=== PATIENT | female | born 1970 | race Caucasian/White ===

== ENCOUNTER 2016-07-01 14:02 | Outpatient (CLI) | payer OTHER | END 2016-07-01 14:03 | disposition home or self-care (01) | DX: G47.8 Other sleep disorders (principal); G47.10 Hypersomnia, unspecified; R06.83 Snoring; R51 Headache ==

== ENCOUNTER 2016-07-29 19:24 | Outpatient (CLI) | payer OTHER | END 2016-07-29 19:25 | disposition home or self-care (01) | DX: G47.61 Periodic limb movement disorder (principal); R06.83 Snoring ==

== ENCOUNTER 2016-08-13 15:11 | Outpatient (CLI) | payer OTHER | END 2016-08-13 15:12 | disposition home or self-care (01) | DX: G47.33 Obstructive sleep apnea (adult) (pediatric) (principal) ==

== ENCOUNTER 2016-09-29 19:15 | Outpatient (CLI) | payer OTHER | END 2016-09-29 19:16 | disposition home or self-care (01) | LOC: SC 19:15 | PROVIDERS: ATTEND Internal Medicine Pulmonary Disease | DX: G47.10 Hypersomnia, unspecified (principal); R06.83 Snoring; R51 Headache | CPT/HCPCS: 95810 ==

== ENCOUNTER 2016-10-14 15:46 | Outpatient (CLI) | payer OTHER | END 2016-10-14 15:47 | disposition home or self-care (01) | LOC: SC 15:46 | PROVIDERS: ATTEND Nurse Practitioner Family | DX: R06.83 Snoring (principal); G47.10 Hypersomnia, unspecified | CPT/HCPCS: 99212; 99213 ==

== ENCOUNTER 2016-12-17 13:21 | Outpatient (CLI) | payer OTHER ==
--- NOTE | 2016-12-17 17:04 | MRI Report ---
EXAM: RIGHT KNEE MRI WITHOUT CONTRAST EXAM DATE: 12/17/2016 02:28 PM. CLINICAL HISTORY: Right knee pain for 4 months, increasing in the last month. COMPARISON: None. TECHNIQUE: Multiplanar, multisequence T1-weighted and fluid-sensitive sequences of the knee without c ontrast. Other: None. FINDINGS: Bones: Moderate tibiofemoral and mild patellofemoral osteophytes are present. No fractures or marrow edema. Red marrow reconversion is demonstrated. Articular Cartilage: The patellar articular cartilage has areas of partial-thickness fissuring. The t rochlear cartilage has moderate thinning and surface irregularity centrally and medially inferiorly. The lateral compartment articular cartilage has focal thinning inferiorly at the lateral femoral cond yle. There is moderate thinning of the medial compartment articular cartilage. Medial Meniscus: The posterior root of the medial meniscus has a longitudinal tear (series 601, image 11). Lateral Meniscus: The lateral meniscus is intact. Cruciate Ligaments: The anterior and posterior cruciate ligaments are intact. Collateral Ligaments: The medial collateral and lateral collateral ligamentous structures are intact. Tendons: The quadriceps, patellar, semimembranosus, and popliteus tendons are unremarkable. Musculature: No edema or fatty atrophy. Other: A mild effusion is present. No popliteal cyst. No loose bodies. The medial and lateral retina cula are intact. Prepatellar subcutaneous edema is seen. IMPRESSION: 1. Mild osteoarthritis. 2. Posterior root tear of the medial meniscus. 3. Mild knee effusion. [facility] MUSCULOSKELETAL RADIOLOGY SECTION Referring Provider Line: [phone] SITE ID: [id number]
== END 2016-12-17 13:22 | disposition home or self-care (01) ==
LOC: DI 13:21
DX: M17.11 Unilateral primary osteoarthritis, right knee (principal); S83.241A Other tear of medial meniscus, current injury, right knee, initial encounter; M25.461 Effusion, right knee

== ENCOUNTER 2018-09-28 19:08 | Emergency (ER) | payer OTHER ==
--- NOTE | 2018-09-28 19:45 | ED Physician Documentation ---
PD HPI BACK PAIN - Stated complaint Stated Complaint: BACK PX - Chief complaint Chief Complaint: Back Pain - History obtained from History obtained from: Patient - History of Present Illness Timing - onset: Yesterday Timing - duration: Days (1) Timing - details: Gradual onset Location: Lower Quality: Other (Tightening and pulling) Associated symptoms: No: Incontinent of urine, Unable to urinate Improves with: Other (No relief with ice, heat or naproxen) Contributing factors: Lifting, Twisting - Additional information Additional information: This a 48-year-old woman who was shopping at [employer] 2 days ago she lifted a case of water and a case of Coke loading them in her car and then unloading them at home. Last night she started to get low back tightening. She took 2 Aleve Yesterday morning and went to work she was able to make it through the shift. Today she took 2 more Aleve and had to leave work after just a couple of hours because she can sit there anymore back just kept tightening up. She iced it and heated it does not seem to be helping. Her left leg felt numb through the entire leg today but she was not weak and she did not fall. No dysuria or urinary incontinence and states she is perimenopausal therefore denies . Her last menstrual period was September 11. She had one other episode with low back pain when she was in her mid 30s. She has a sitdown job doing factory production work. Review of Systems Constitutional: denies: Fever : denies: Dysuria, Incontinent, Hematuria Musculoskeletal: reports: Back pain PD PAST MEDICAL HISTORY - Present Medications Home Medications: Ambulatory Orders Medication Instructions Recorded Confirmed Cetirizine [ZyrTEC] 10 mg PO DAILY 09/28/18 09/28/18 Cyclobenzaprine [Flexeril] 10 mg PO TID PRN #20 tablet 09/28/18 Fluticasone [Flonase] 1 - 2 spray DANIELA DAILY 09/28/18 09/28/18 - Allergies Allergies/Adverse Reactions: Allergies Allergy/AdvReac Type Severity Reaction Status Date / Time No Known Drug Allergies Allergy Verified 09/28/18 19:15 PD ED PE NORMAL - Vitals Vital signs reviewed: Yes - General General: Alert and oriented X 3, No acute distress, Well developed/nourished, Other (Obese 48-year-old woman who is not in acute distress.) - HEENT HEENT: Atraumatic - Back Back: Other (Tender to palpation along the lower back and into the paraspinal muscles. No bruising, swelling or rash.) - Derm Derm: Normal color, Warm and dry, No rash - Extremities Extremities: No edema - Neuro Neuro: Alert and oriented X 3, occup ther 2-12 intact, No motor deficit, No sensory deficit, Normal speech, Other (Symmetrical quadricep reflexes) Results - Vitals Vitals: Vital Signs - 24 hr 09/28/18 19:10 Temperature 36.5 C Heart Rate 72 Respiratory 16 Rate Blood Pressure 159/99 H O2 Saturation 99 Oxygen O2 Source Room air - Labs Labs: Laboratory Tests 09/28/18 20:09 Urine Color YELLOW Urine Clarity CLEAR Urine pH 5.5 Ur Specific [place] >=1.030 H Urine Protein NEGATIVE Urine Glucose (UA) NEGATIVE Urine Ketones NEGATIVE Urine Occult Blood TRACE-INTA Urine Nitrite NEGATIVE Urine Bilirubin NEGATIVE Urine Urobilinogen 0.2 (NORMAL) Ur Leukocyte Esterase NEGATIVE Ur Microscopic Review NOT INDICATED Urine Culture Comments NOT INDICATED PD MEDICAL DECISION MAKING - ED course Complexity details: d/w patient ED course: Urinalysis was negative. I think the patient's has a low back strain. Will encourage her to continue the anti-inflammatories and will give prescription for muscle relaxers. She should not drive or operate machinery while taking those. Also Provide low back stretching exercises. Departure - Departure Disposition: 01 Home, Self Care Clinical Impression: Lumbar strain Qualifiers: Encounter type: initial encounter Qualified Code(s): S39.012A - Strain of mus elena, fascia and tendon of lower back, initial encounter Condition: Good Instructions: ED Sprain Strain Lumbar, ED Exercises Lumbar Muscles [facility] Prescriptions: Cyclobenzaprine [Flexeril] 10 mg PO TID PRN #20 tablet PRN Reason: Spasms Comments: Ice the lower back. I would recommend Aleve 2 tablets twice a day. Stretching exercises as provided. You can take Flexeril if needed for muscle relaxer but do not drive or operate machinery if you are taking that medication. Follow-up with your primary care provider if the symptoms are not improving.
[2018-09-28 20:18] LABS: BILIRUBIN,URINE NEGATIVE (NEGATIVE); GLUCOSE, URINE (UA) NEGATIVE (NEGATIVE); KETONES,URINE (UA) NEGATIVE (NEGATIVE); LEUKOCYTE ESTERASE, URINE NEGATIVE (NEGATIVE); NITRITE,URINE NEGATIVE (NEGATIVE); OCCULT BLOOD,URINE TRACE-INTA (NEGATIVE); PH,URINE 5.5 PH (5.0-7.5); PROTEIN,URINE NEGATIVE (NEGATIVE); UROBILINOGEN,URINE 0.2 (NORMAL) E.U./dL (NORMAL)
[2018-09-28 20:19] LABS: CLARITY,URINE CLEAR (CLEAR)
[2018-09-28 20:41] VITALS: BP 159/86
== END 2018-09-28 20:41 | disposition home or self-care (01) ==
LOC: ED 19:08
DX: S39.012A Strain of muscle, fascia and tendon of lower back, initial encounter (principal); X50.0XXA Overexertion from strenuous movement or load, initial encounter; Y93.89 Activity, other specified; Y92.512 Supermarket, store or market as the place of occurrence of the external cause; Y92.009 Unspecified place in unspecified non-institutional (private) residence as the place of occurrence of the external cause
CPT/HCPCS: 81001; 81003; 87086; 99283

== ENCOUNTER 2022-10-03 14:38 | Outpatient (CLI) | payer OTHER ==
--- NOTE | 2022-10-03 15:32 | Sleep Patient Instructions ---
Sleep Center Visit Summary - Patient Visit Information Reason for Visit: Initial consult for evaluation of sleep disordered breathing and other sleep issues. - Patient Instructions Instructions Attached: Sleep Study, Sleep Clinic Visit, Sleep Study Home Monitor Additional Instructions: You will be completing a sleep study, either an in-lab polysomnography (PSG) or home sleep study (HST). You will follow-up in the sleep care office after the sleep study is completed to hear the results and talk about therapy, if needed. You will be called by our office staff to schedule this appointment, but you may contact us with any questions. - Clinic Information Contact: [facility] [address] [place] [address] [email or web address] T: [phone]
--- NOTE | 2022-10-03 15:38 | SLEEP CARE CONSULTATION ---
Information from patient questionnaire entered by Celena Eubanks. I have reviewed and concur with the information entered by Celena Eubanks. This document represents the service I personally performed and the decisions made by me, Verna Foster ARNP. History of Present Illness Service Date and Time: 10/03/2022 1438 Reason for Visit: New patient Chief Complaint: reports: Unrefreshed sleep, Fatigue, Frequent awakenings at night Date of Onset: 3YRS Usual bedtime: 830PM Time it takes to fall asleep: 30MINS Snores at night: Yes Observed to quit breathing while asleep: No Sleeps alone due to snoring: No Number of times waking at night: 3-4 Reasons for waking at night: reports: Snoring, Gasping for air (once in a while), Pain, Bathroom. denies: Choking Toss, Turn, or Twitch while sleeping: Yes Recalls having dreams: Yes Usually gets out of bed at: 430; weekends 0630 if working, 0800 if not Feels refreshed in the morning: No Morning headache: Yes (2 times a week, last an hour or so) Sleepy or fatigued during the day: Yes Ever fallen asleep while driving: No Takes day naps: No Dreams during day naps: No Prior sleep studies: Yes Year and Where: [facility] Additional HPI information: I had the pleasure of seeing CASSANDRA CHAVEZ today regarding the possibility of her having a sleep disorder. Her current complaints are fatigue, frequent night awakenings and unrefreshed sleep. Cassandra was last seen here in our sleep care office 09/2016. She has had previous sleep studies that did not diagnose her with sleep apnea. She returns today because she did lose weight after her last visit but she has put 27 pounds back on since then. She states she is snoring and waking herself up. She is not waking up feeling rested in the morning. 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 Patient is and lives in [place]. Have you smoked in the past 12 months: No Alcohol use: No Caffeine use: Yes Caffeine amount and frequency: 5 CUPS EVERYDAY Family History Family history of sleep disordered breathing: Yes Family Hx Sleep Apnea: Mother: Sleep apnea - Treated, Father: Snoring, Sleep apnea - Treated, Sibling: Sleep apnea - Untreated Allergies and Home Medications Known drug allergies: No Drug allergies reviewed: Yes Home medication list reviewed: Yes (see updated list in EMR) Allergy and home medication list: Allergies No Known Drug Allergies Allergy (Verified 10/02/22 10:37) Review of Systems Weight gain over past 5 years: 27 Cardiovascular: reports: high blood pressure Respiratory: reports: shortness of breath, wheeze, chronic cough Gastrointestinal: reports: heartburn Neurological: denies: headaches Psychiatric: denies: anxiety, depression Ear/Nose/Throat: reports: nasal congestion, dry mouth/throat, wisdom teeth removed. denies: tonsillectomy Endocrine: denies: thyroid disease Immunologic: reports: allergies to food or environment Physical Exam Vital signs obtained and entered by: CELENA Galicia MA Blood Pressure: 154/100 (LEFT ARM) Cuff size: long Heart Rate: 77 O2 Saturation: 97 Height: 5 ft 4 in Weight: 299 lb Weight change since last visit: 69 Body Mass Index: 51.2 BMI Classification: Morbidly Obese Neck circumference: 17.25 Mouth and throat: narrow oropharynx Soft palate: long Hard palate: normal Uvula: normal Uvula visualization: 25% Mallampati Class III Tongue: enlarged in size with teeth gonzalez on lateral edges Tonsils: 1+ Neck: normal w/o lymphadenopathy or thyromegaly Heart: regular rate and rhythm Lungs: clear bilaterally Impression and Plan 1. Suspected Obstructive Sleep Apnea-Hypopnea Syndrome, as suggested by a history of loud and irregular snoring, morning headache, frequent awakening during the night, unrefreshed sleep, cognitive impairment, and excessive daytime sleepiness. Narrow oropharynx and obesity are common predisposing factors for obstructive sleep apnea-hypopnea syndrome. I recommend proceeding to polysomnography to confirm the diagnosis and to assess severity. If the patient has significant sleep disordered breathing, a manual CPAP titration study will also be performed to find the optimal treatment pressure. I informed the patient of what the sleep studies involve and after some discussion, obtained agreement to proceed. The pathophysiology of obstructive sleep apnea-hypopnea syndrome was discussed with the patient and health risks of cardiovascular and cerebrovascular disease if not treated. Risks of drowsy driving discussed in detail and patient advised to avoid long distance driving and to sample puller at the first sign of drowsiness. Patient agreed to plan. * Schedule polysomnography +- manual CPAP titration study and return in 1-2 weeks after the study to discuss result and initiate therapy. * Avoid long distance driving or driving when feeling sleepy. * Avoid alcohol, sedative and muscle relaxant around bedtime. * Attempt to lose weight. * Review instructions provided by trained office staff on how to prepare for the sleep study. * Return for follow-up after sleep study completed. Counseling Topics: Weight loss health impact Visit Type: In Office Time Spent with Patient (minutes): 30 Provider Statement: I spent 100% of the Face to Face Visit with the patient with greater than 50% spent counseling the patient and coordination of care.
[2022-10-03 15:41] VITALS: BP 154/100
== END 2022-10-03 14:39 | disposition home or self-care (01) ==
LOC: SC 14:38
PROVIDERS: ATTEND Nurse Practitioner Family
DX: G47.10 Hypersomnia, unspecified (principal); R53.83 Other fatigue; G47.8 Other sleep disorders; R06.83 Snoring; I10 Essential (primary) hypertension; E66.01 Morbid (severe) obesity due to excess calories; Z68.43 Body mass index [BMI] 50.0-59.9, adult
CPT/HCPCS: 99203; 99212

== ENCOUNTER 2022-12-03 15:42 | Outpatient (CLI) | payer OTHER ==
--- NOTE | 2022-12-03 16:10 | Sleep Patient Instructions ---
Sleep Center Visit Summary - Patient Visit Information Reason for Visit: Sleep Study followup - Patient Instructions Instructions Attached: CPAP Dc, CPAP Additional Instructions: You are being started on CPAP therapy with pressure setting at 4-15 cmH2O. You will need to call the sleep care office to set up your follow up once you have your APAP machine and we will schedule a visit to check compliance and response to therapy at that time. You may call the office with any concerns about pressure feeling too low or too much for adjustment, if needed. You should contact DME for any questions or concerns about mask or equipment. Please call office to schedule a follow up appointment in the sleep care office one month after obtaining new CPAP. - Clinic Information Contact: [facility] [address] [place] [address] [email or web address] T: [phone]
--- NOTE | 2022-12-03 16:13 | SLEEP CARE CONSULTATION ---
Information from patient questionnaire entered by Celena Eubanks. I have reviewed and concur with the information entered by Celena Eubanks. This document represents the service I personally performed and the decisions made by , Verna Foster ARNP. History of Present Illness Service Date and Time: 12/03/2022 1542 Initial [place] Sleepiness Scale score: 13 (10/03/22) Current [place] Sleepiness Scale score: 11 (12/03/22) Additional HPI information: CORA CHAVEZ returns for follow up and results of the recently performed polysomnography. PSG showed mild obstructive sleep apnea with an average AHI of 8.9 and rick oxygen saturation of 69%. I explained the pathophysiology behind obstructive sleep apnea. We then spent quite a bit of time discussing different treatment options. For mild obstructive sleep apnea, surgery and oral appliance are alternatives to nasal CPAP therapy but in moderate or severe cases, nasal CPAP is the most effective and reliable treatment. Because apnea is primarily in supine position, then positional management therapy could be effective. Methods discussed such as positioning with pillows, using a T-shirt with tennis balls in the back or commercial products that have a pillow format on back to prevent supine sleep. I reviewed the impact of weight changes on sleep apnea and strongly recommended losing weight. After some discussion, the patient opted to go with the nasal CPAP therapy. Nasal autoCPAP set at 4-15 cmH20 will be ordered with rationale explained. A manual titration study will be ordered if unable to find optimal pressure with office adjustments. I explained how CPAP machine works and what to expect when using the machine. Using CPAP every night in order to get used to it was emphasized. Patient advised to put CPAP mask on before getting into bed so as not to fall asleep without CPAP. To assist acclimation to CPAP use, it could also be used for a short time during day while reading or watching TV. The patient was instructed to call the CPAP supplier to discuss any mechanical problem that may occur. If the mask given is uncomfortable or is difficult to keep on through the night even with adjustment, contact the CPAP supplier as many will replace with another mask style if notified before 30 days. If snoring or perceives is not getting enough air or too much air from the machine, notify this office. Patient does not drink alcohol. Patient was cautioned about risks of drowsy driving until sleepiness symptoms resolve. Patient denies drowsy driving. Sleep Study - Results Type of Sleep Study: Polysomnography (COMPLETED 11/08/22) Prior sleep studies: Yes Year and Where: [facility] Polysomnography/Home Sleep Study results: IMPRESSION: The quality of the study is good. The patient had normal sleep efficiency. The sleep architecture was abnormal for sleep fragmentation and reduced amount of time spent in REM and slow wave sleep (N3). Respiratory monitoring showed mild obstructive sleep apnea-hypopnea (AHI = 8.9) associated with frequent arousals, oxyhemoglobin desaturation and moderate hypoxia (rick oxygen saturation of 69%). Baseline oxygen saturation was normal. The respiratory events occurred during supine REM sleep (supine AHI = 12.5; non-supine = 1.05). Snore was loud in intensity. There was no significant periodic leg movement of sleep. Cardiac rhythm was normal sinus rhythm without significant arrhythmia. No abnormal behavior (parasomnia) observed during the night. Allergies and Home Medications Known drug allergies: No Drug allergies reviewed: Yes Home medication list reviewed: Yes (no changes) Allergy and home medication list: Allergies No Known Drug Allergies Allergy (Verified 12/02/22 11:48) Review of Systems Review of systems same as previous: Yes (no changes) Physical Exam Vital signs obtained and entered by: CELENA Galicia MA Blood Pressure: 128/72 (LEFT WRIST) Cuff size: regular Heart Rate: 68 O2 Saturation: 95 Height: 5 ft 4 in Weight: 301 lb 3.2 oz Body Mass Index: 51.7 BMI Classification: Morbidly Obese Impression and Plan 1. Obstructive Sleep Apnea-Hypopnea Syndrome, mild, with lowest oxygen saturation of 69%. Obviously this is the cause of the patients symptoms of unrefreshed sleep, and excessive daytime sleepiness. Positive pressure therapy could benefit hypertension and gastric reflux. As mentioned above, the patient will be started on nasal autoCPAP therapy with pressure set at 4-15 cmH2O. A manual titration study will be completed if unable to find optimal treatment pressure with office adjustments. Compliance guidelines also reviewed. A copy of compliance guidelines will be given for reference at check out. Because the apnea is more severe supine, I instructed to avoid sleeping supine using pillow positioning until able to start CPAP use. 2. Hypoxemia, moderate, with a rick oxygen saturation of 69% and 10.3 minutes spent under 90%. Her baseline oxygen saturation was normal with an average oxygen saturation of 92%. 2. Obesity, unspecified. Currently patients BMI is 51.7. She is working on bariatric surgery later this year to help her lose weight. Obesity increases the risk of apnea, CPAP pressure requirements and overall health risks especially cardiovascular and diabetes. Thus patient is advised to lose weight. * Nasal auto CPAP therapy, pressure at 4-15 cm H2O. * Attempt to lose weight. * Avoid alcohol consumption near bedtime. * Avoid supine sleep until using CPAP. * The patient is again cautioned about driving until sleepiness completely resolves. * Return one month after CPAP obtained. I will assess response to therapy and compliance at that time. Counseling Topics: Weight loss health impact Prescriptions: Auto CPAP Visit Type: In Office Time Spent with Patient (minutes): 18 Provider Statement: I spent 100% of the Face to Face Visit with the patient with greater than 50% spent counseling the patient and coordination of care.
[2022-12-03 16:17] VITALS: BP 128/72; O2SAT 95
== END 2022-12-03 15:43 | disposition home or self-care (01) ==
LOC: SC 15:42
PROVIDERS: ATTEND Nurse Practitioner Family
DX: G47.33 Obstructive sleep apnea (adult) (pediatric) (principal); R09.02 Hypoxemia; E66.01 Morbid (severe) obesity due to excess calories; Z68.43 Body mass index [BMI] 50.0-59.9, adult
CPT/HCPCS: 99212

== ENCOUNTER 2023-02-06 15:58 | Outpatient (CLI) | payer OTHER ==
--- NOTE | 2023-02-06 16:24 | Sleep Patient Instructions ---
Sleep Center Visit Summary - Patient Visit Information Reason for Visit: First Compliance with PAP therapy - Patient Instructions Additional Instructions: You were here for follow up of CPAP therapy. You will be continued on CPAP therapy with pressure at 10-12 cmH2O. Please let us know if the pressure change is uncomfortable and we can make further adjustments of the pressure. You should follow up with sleep care in 1-2 months. You may contact us sooner for any questions or concerns. - Clinic Information Contact: [facility] [address] [place] [address] [email or web address] T: [phone]
--- NOTE | 2023-02-06 16:28 | SLEEP CARE CONSULTATION ---
Information from patient questionnaire entered by Norma Eubanks. I have reviewed and concur with the information entered by Norma Eubanks. This document represents the service I personally performed and the decisions made by , Verna Foster ARNP. History of Present Illness Service Date and Time: 02/06/2023 1558 Previous diagnosis: Mild, Obstructive Sleep Apnea-Hypopnea Syndrome AHI: 8.9 (in 10/2022) Reason for follow up: first compliance Equipment type: CPAP (RESMED Airsense 11, s/u 11/2022) Equipment obtained from: Other ([facility]; getting supplies) Mask style: Full face Backup mask available: No (will keep old mask when replaced) Last cushion change: almost 2 weeks Prior sleep studies: Yes Year and Where: [facility] Type of Sleep Study: Polysomnography (COMPLETED 11/08/22) HPI additional information: CORA CHAVEZ was diagnosed to have mild, AHI 8.9, obstructive sleep apnea- hypopnea syndrome and returned today for CPAP therapy first compliance follow- up. Sleep Study - Results Type of Sleep Study: Polysomnography (COMPLETED 11/08/22) Prior sleep studies: Yes Year and Where: [facility] CPAP Compliance Data - Data Reviewed with Patient Average duration of nightly device use: 6 HRS 36 MINS Compliance rate %: 97 (01/05/23-02/03/23; 30/30 days used) Current pressure setting (cmH2O): 4-15 (median 6.2, avg 10.1, max 11) Average residual AHI: 2.3 Central apnea: 0 Obstructive apnea: 1.4 Hypopnea: 0.8 Average large leak: 0.3 L/min Subjective Patient concerns: reports: dry mouth, nose, throat (dry mouth). denies: aerophagia, mask discomfort, air blowing in eyes, mask leak noise, condensation in mask/hose, nasal congestion, epistaxis Observed to snore while using device: No Current pressure setting perceived as: comfortable On therapy, patient: reports: sleeping better, awakening more refreshed, being more awake and alert during the day, more rested overall. denies: drowsiness while driving Initial [place] Sleepiness Scale score: 13 (10/03/22) Current [place] Sleepiness Scale score: 6 (02/06/23) Allergies and Home Medications Known drug allergies: No Drug allergies reviewed: Yes Home medication list reviewed: Yes (Losartan for high blood pressure) Allergy and home medication list: Allergies No Known Drug Allergies Allergy (Verified 02/05/23 10:03) Review of Systems Review of systems same as previous: No (ABNORMAL EKG) Physical Exam Vital signs obtained and entered by: NORMA Galicia MA Blood Pressure: 134/82 (LEFT ARM) Cuff size: long Heart Rate: 89 O2 Saturation: 98 Height: 5 ft 4 in Weight: 290 lb 3.2 oz Body Mass Index: 49.8 BMI Classification: Morbidly Obese Impression and Plan 1. Obstructive Sleep Apnea-Hypopnea Syndrome, mild, with good treatment compliance and good apnea control. On CPAP therapy, the patient has better sleep quality and is more rested overall. Patient has significant improvement of their sleep apnea and is satisfied with current CPAP therapy. She feels like the pressure is comfortable but it could be a little higher at the onset of the night. I will increase her ramp starting pressure to 5 cm H2O. The patients pressure will be changed to autoCPAP 10-12 [id number] reflect pressure being used. Patient advised to contact me if pressure change is uncomfortable so that it can be adjusted. Goals for apnea control discussed. She had some condensation in the mask and so she turned her humidifier number down to 3. She has since gotten a little more dry mouth. I advised her to increase the humidifier back to 4 and then increase her tube temperature to help reduce condensation. Also advised her to put a cover on the tube to help reduce condensation from the cold air in her sleeping room hitting the moist warm air in the tubing. She voiced understanding. Patient's apnea severity and rationale for treatment to reduce apnea, improve sleep quality and reduce cardiovascular and cerebrovascular events was reviewed. I also reviewed the benefit of consistent device use of CPAP for hypertension, gastric reflux. 2. Obesity, unspecified. Currently patients BMI is 49.8. Obesity increases the risk of apnea, CPAP pressure requirements and overall health risks especially cardiovascular and diabetes. Thus patient is advised to lose weight. * Change auto CPAP pressure to 10-12 cmH2O * Notify me if snoring with mask or feeling that the pressure is too much or too little * Attempt to lose weight * Call this office if any problems using CPAP * Return for follow up in 1-2 months, or sooner if concerns arise Counseling Topics: Spare mask, Weight loss health impact Visit Type: In Office Time Spent with Patient (minutes): 20 Provider Statement: I spent 100% of the Face to Face Visit with the patient with greater than 50% spent counseling the patient and coordination of care.
[2023-02-06 16:29] VITALS: BP 134/82; O2SAT 98
== END 2023-02-06 15:59 | disposition home or self-care (01) ==
LOC: SC 15:58
PROVIDERS: ATTEND Nurse Practitioner Family
DX: G47.33 Obstructive sleep apnea (adult) (pediatric) (principal); E66.01 Morbid (severe) obesity due to excess calories; Z68.42 Body mass index [BMI] 45.0-49.9, adult
CPT/HCPCS: 99212; 99213

== ENCOUNTER 2023-03-12 16:04 | Outpatient (CLI) | payer OTHER ==
--- NOTE | 2023-03-12 16:19 | Sleep Patient Instructions ---
Sleep Center Visit Summary - Patient Visit Information Reason for Visit: 1 month Followup with pressure change - Patient Instructions Additional Instructions: You were here for follow up of CPAP therapy. You will be continued on CPAP therapy with pressure at 10-12 cmH2O. You should follow up with sleep care in 3 months. You may contact us sooner for any questions or concerns. - Clinic Information Contact: [facility] [address] [place] [address] [email or web address] T: [phone]
--- NOTE | 2023-03-12 16:21 | SLEEP CARE CONSULTATION ---
Information from patient questionnaire entered by Norma Eubanks. I have reviewed and concur with the information entered by Norma Eubanks. This document represents the service I personally performed and the decisions made by , Verna Foster ARNP. History of Present Illness Service Date and Time: 03/12/2023 1604 Previous diagnosis: Mild, Obstructive Sleep Apnea-Hypopnea Syndrome AHI: 8.9 Reason for follow up: one month (F/U) Equipment type: CPAP (RESMED Airsense 11, s/u 11/2022) Equipment obtained from: Other ([facility]; getting supplies) Mask style: Full face Backup mask available: Yes Last cushion change: 1 time a month Prior sleep studies: Yes Year and Where: [facility] Type of Sleep Study: Polysomnography (COMPLETED 11/08/22) HPI additional information: CORA CHAVEZ was diagnosed to have mild, AHI 8.9, obstructive sleep apnea- hypopnea syndrome and returned today for CPAP therapy one month follow-up. Sleep Study - Results Type of Sleep Study: Polysomnography (COMPLETED 11/08/22) Prior sleep studies: Yes Year and Where: [facility] CPAP Compliance Data - Data Reviewed with Patient Average duration of nightly device use: 6 HRS 36 MINS Compliance rate %: 87 (02/08/23-03/09/23; 30/30 days used) Current pressure setting (cmH2O): 10-12 Average residual AHI: 2.1 Central apnea: 0.1 Obstructive apnea: 1.3 Average large leak: 0 L/min Subjective Patient concerns: denies: aerophagia, mask discomfort, air blowing in eyes, mask leak noise, condensation in mask/hose, nasal congestion, dry mouth, nose, throat, epistaxis Observed to snore while using device: No Current pressure setting perceived as: comfortable On therapy, patient: reports: sleeping better, awakening more refreshed, being more awake and alert during the day, more rested overall. denies: drowsiness while driving Initial [place] Sleepiness Scale score: 13 (10/03/22) Current [place] Sleepiness Scale score: 8 (03/12/23) Allergies and Home Medications Known drug allergies: No Drug allergies reviewed: Yes Home medication list reviewed: Yes (no changes) Allergy and home medication list: Allergies No Known Drug Allergies Allergy (Verified 11/14/23 15:57) Review of Systems Review of systems same as previous: Yes (NO CHANGE) Physical Exam Vital signs obtained and entered by: NORMA Galicia MA Blood Pressure: 124/75 (RIGHT) Cuff size: wrist Heart Rate: 84 O2 Saturation: 93 Height: 5 ft 4 in Weight: 281 lb 6.4 oz Weight change since last visit: 9 lbs loss Body Mass Index: 48.3 BMI Classification: Morbidly Obese Impression and Plan 1. Obstructive Sleep Apnea-Hypopnea Syndrome, mild, with good treatment compliance and good apnea control. On CPAP therapy, the patient has better sleep quality and is more rested overall. Patient states she is comfortable using the CPAP and is happy with the last pressure change. Patient has significant improvement of their sleep apnea and is satisfied with current CPAP therapy. Patient denies problems with oral dryness, nasal congestion, epistaxis, skin irritation or aerophagia. Patient's apnea severity and rationale for treatment to reduce apnea, improve sleep quality and reduce cardiovascular and cerebrovascular events was reviewed. I also reviewed the benefit of consistent device use of CPAP for hypertension and gastric reflux. 2. Obesity, unspecified. Currently patients BMI is 48.3. She has lost to weight. Obesity increases the risk of apnea, CPAP pressure requirements and overall health risks especially cardiovascular and diabetes. Thus patient is advised to continue to try to lose weight. * Continue auto CPAP pressure at 10-12 cmH2O * Notify me if snoring with mask or feeling that the pressure is too much or too little * Continue to try to lose weight * Call this office if any problems using CPAP * Return for follow up in 3 months, or sooner if concerns arise Counseling Topics: Weight loss health impact Follow up with Sleep Care in: 3 months Visit Type: In Office Time Spent with Patient (minutes): 11 Provider Statement: I spent 100% of the Face to Face Visit with the patient with greater than 50% spent counseling the patient and coordination of care.
[2023-03-12 16:38] VITALS: BP 124/75; O2SAT 93
== END 2023-03-12 23:59 | disposition home or self-care (01) ==
LOC: SC 16:04
PROVIDERS: ATTEND Nurse Practitioner Family
DX: G47.33 Obstructive sleep apnea (adult) (pediatric) (principal); E66.01 Morbid (severe) obesity due to excess calories; Z68.42 Body mass index [BMI] 45.0-49.9, adult
CPT/HCPCS: 99212

== ENCOUNTER 2023-06-12 15:59 | Outpatient (CLI) | payer OTHER ==
--- NOTE | 2023-06-12 16:19 | Sleep Patient Instructions ---
Sleep Center Visit Summary - Patient Visit Information Reason for Visit: 3 month followup for PAP therapy - Patient Instructions Additional Instructions: You were here for follow up of CPAP therapy. You will be continued on CPAP therapy with pressure at 10-12 cmH2O. You should follow up with sleep care in 6 months. You may contact us sooner for any questions or concerns. - Clinic Information Contact: [facility] [address] [place] [address] [email or web address] T: [phone]
--- NOTE | 2023-06-12 16:22 | SLEEP CARE CONSULTATION ---
Information from patient questionnaire entered by Norma Eubanks. I have reviewed and concur with the information entered by Norma Eubanks. This document represents the service I personally performed and the decisions made by , Verna Foster ARNP. History of Present Illness Service Date and Time: 06/12/2023 1559 Previous diagnosis: Mild, Obstructive Sleep Apnea-Hypopnea Syndrome AHI: 8.9 Reason for follow up: three month (F/U) Equipment type: CPAP (RESMED Airsense 11, s/u 11/2022) Equipment obtained from: Other ([facility]; getting supplies) Mask style: Full face Backup mask available: Yes (old mask) Last cushion change: 2 weeks+ Prior sleep studies: Yes Year and Where: [facility] Type of Sleep Study: Polysomnography (COMPLETED 11/08/22) HPI additional information: CORA CHAVEZ was diagnosed to have mild, AHI 8.9, obstructive sleep apnea- hypopnea syndrome and returned today for CPAP therapy three month follow-up. Sleep Study - Results Type of Sleep Study: Polysomnography (COMPLETED 11/08/22) Prior sleep studies: Yes Year and Where: [facility] CPAP Compliance Data - Data Reviewed with Patient Average duration of nightly device use: 6 HRS 29 MINS Compliance rate %: 78 (03/12/23-06/09/23; 73/90 days used) Current pressure setting (cmH2O): 10-12 Average residual AHI: 1.4 Central apnea: 0.1 Obstructive apnea: 0.7 Average large leak: 0 L/min Subjective Missed days of use due to: reports: illness (nose stuffed up) Patient concerns: denies: aerophagia, mask discomfort, air blowing in eyes, mask leak noise, condensation in mask/hose, nasal congestion, dry mouth, nose, throat, epistaxis Observed to snore while using device: No Current pressure setting perceived as: comfortable On therapy, patient: reports: sleeping better, awakening more refreshed, being more awake and alert during the day, more rested overall. denies: drowsiness while driving Initial [place] Sleepiness Scale score: 13 (10/03/22) Current [place] Sleepiness Scale score: 5 (06/12/23) Allergies and Home Medications Known drug allergies: No Drug allergies reviewed: Yes Home medication list reviewed: Yes (no changes) Allergy and home medication list: Allergies No Known Drug Allergies Allergy (Verified 06/10/23 16:48) Review of Systems Review of systems same as previous: Yes (NO CHANGE) Physical Exam Vital signs obtained and entered by: NORMA Galicia MA Blood Pressure: 148/90 (RIGHT ) Cuff size: wrist Heart Rate: 77 O2 Saturation: 99 Height: 5 ft 4 in Weight: 281 lb 9.6 oz Body Mass Index: 48.3 BMI Classification: Morbidly Obese Impression and Plan 1. Obstructive Sleep Apnea-Hypopnea Syndrome, mild, with good treatment compliance and good apnea control. On CPAP therapy, the patient has better sleep quality and is more rested overall. Patient has significant improvement of their sleep apnea and is satisfied with current CPAP therapy. Patient denies problems with oral dryness, nasal congestion, epistaxis, skin irritation or aerophagia. Patient's apnea severity and rationale for treatment to reduce apnea, improve sleep quality and reduce cardiovascular and cerebrovascular events was reviewed. I also reviewed the benefit of consistent device use of CPAP for hypertension and gastric reflux. 2. Obesity, unspecified. Currently patients BMI is 48.3. She is scheduled for a gastric bypass on July 02. Obesity increases the risk of apnea, CPAP pressure requirements and overall health risks especially cardiovascular and diabetes. T hus patient is advised to continue to try to lose weight. * Continue auto CPAP pressure at 10-12 cmH2O * Notify me if snoring with mask or feeling that the pressure is too much or too little * Attempt to lose weight * Call this office if any problems using CPAP * Return for follow up in 6 months, or sooner if concerns arise Counseling Topics: Weight loss health impact Follow up with Sleep Care in: 6 months Visit Type: In Office Time Spent with Patient (minutes): 12 Provider Statement: I spent 100% of the Face to Face Visit with the patient with greater than 50% spent counseling the patient and coordination of care.
[2023-06-12 16:31] VITALS: BP 148/90; O2SAT 99
== END 2023-06-12 16:00 | disposition home or self-care (01) ==
LOC: SC 15:59
PROVIDERS: ATTEND Nurse Practitioner Family
DX: G47.33 Obstructive sleep apnea (adult) (pediatric) (principal); E66.01 Morbid (severe) obesity due to excess calories; Z68.42 Body mass index [BMI] 45.0-49.9, adult
CPT/HCPCS: 99212